=== PATIENT | male | born 1955 | race Caucasian/White ===

== ENCOUNTER 2023-04-06 08:16 | Outpatient (CLI) | payer MEDICARE ==
[~2023-04-06] VITALS: Ht 179.7 cm; Wt 102.7 kg
[2023-04-06 08:43] VITALS: BP 150/80
[2023-04-06] MEDS ORDERED: HYDR12.56 PO (08:58)
[2023-04-06] MEDS ORDERED: MULT-1136 PO (08:58)
[2023-04-06] MEDS ORDERED: SEMA7TAB2 PO (08:58)
[2023-04-06] MEDS ORDERED: GBPN600T PO (08:58)
[2023-04-06] MEDS ORDERED: CELE100C PO (08:58)
[2023-04-06] MEDS ORDERED: EMPA1TAB7 PO (08:58)
[2023-04-06] MEDS ORDERED: SIMV10TA26 PO (08:58)
[2023-04-06] MEDS ORDERED: LISI2.5T13 PO (08:58)
[2023-04-06] MEDS ORDERED: PARO40TA3 PO (08:58)
[2023-04-06] MEDS ORDERED: PARO10TA3 PO (08:58)
[2023-04-06] MEDS ORDERED: TMSL.4C PO (08:58)
--- NOTE | 2023-04-06 09:12 | Physical Therapy Pre-Op Eval ---
PT Pre-Surgical Assessment Type of Surgery Type of Surgery: Prior Level of Function Current Living Status: Spouse Locomotion (Upon Admit): Independent Distance: Unlimited PLOF DME: None Subjective Subjective Patient reports left knee pain, 0/10 currently. Needs a FWW post surgical. Home: Single Level Current Living Status: Spouse Entry Into Home: Stairs With Railing Steps Into Home: 5 Motor Control Motor Control: Motor Control WNL ROM ROM: WFL, except focal deficit Strength Strength: WFL Gait Gait (FIM): 6 Gait Distance (FIM): 6 Distance: 150' Gait Assistive Device: FWW Right Lower Extremity: Right Full Weight Bearing Left Lower Extremity: Left Full Weight Bearing Treatment Rendered Treatment: Patient instructed in assistive device, supported ambulation. Patient instructed in and given written program of ROM and strengthening exercises to be preformed post-op. Patient instructed in movement precautions where applicable. Patient demonstrates understandings of post-operative therapy protocol including gait pattern and exercise program. Pre-operative instruction completed; await physical therapy orders after s urgery. Treatment Goal Met: Yes Assessment Goals Acheived: I Ambulation w/ FWW, Understands P-op [place], I Post-op Exercises Charges/GCodes Time In: 825 Time Out: 842 Total Billed Treatment Time: 17 Total Billed Treatment Visit, LUZMARIA ROB PT Apr 06, 2023 09:12
== END 2023-04-07 08:53 ==
LOC: PREOP 08:16
PROVIDERS: ATTEND Orthopaedic Surgery
DX: Z01.818 Encounter for other preprocedural examination (principal); M17.12 Unilateral primary osteoarthritis, left knee